=== PATIENT | male | born 1975 | race African-American/Black ===

== ENCOUNTER 2022-10-27 20:32 | Emergency (ER) | payer SELFPAY ==
[2022-10-27 20:47] VITALS: BP 161/105; RESP 18; TEMP 98.5; BMI 30.7
[2022-10-27 20:49] VITALS: PULSE 72
[2022-10-27] MEDS ORDERED: AMOX TR/POT CLAV 875MG/125MG TABLETS (FP) PO ONE (21:07)
[2022-10-27] MEDS ORDERED: KETOROLAC TROMETHAMINE 30 MG/1 ML VIAL IM ONE (21:07)
[2022-10-27] MEDS ORDERED: KETOROLAC TROMETHAMINE 30 MG/1 ML VIAL ONE (21:20)
[2022-10-27] MEDS ORDERED: AMOX TR/POT CLAV 875MG/125MG TABLETS (FP) ONE (21:20)
== END 2022-10-27 21:37 | disposition home or self-care (01) ==
LOC: JER 20:32
PROC: 3E0233Z Introduction of Anti-inflammatory into Muscle, Percutaneous Approach (ICD-10-PCS; principal; 2022-10-27)
DX: K08.89 Other specified disorders of teeth and supporting structures (principal); R20.0 Anesthesia of skin; K02.9 Dental caries, unspecified
CPT/HCPCS: 93005; 93010; 99284-25